=== PATIENT | male | born 1950 | race Caucasian/White ===

== ENCOUNTER → 2017-02-02 | Outpatient (CLI) | payer MEDICARE, OTHER ==
[~2017-02-02] MED LIST: CARB25TA75 PO; CHOL500021 OR; CLON05T PO; LEVO125T6 PO; LISI-709 PO; PERCOT PO; TRAZ100T2 PO; WARF7.5T PO
[2017-02-02 16:26] LABS: Basophils # (auto) 0 uL; Basophils % (auto) 0.4 % (0.0-2.0); Eosinophils # (auto) 0.2 uL; Eosinophils % (auto) 1.8 % (0.0-7.0); Hematocrit 46.9 % (41.0-53.0); Hemoglobin 15.1 g/dL (13.5-17.5); Lymphocytes # (auto) 1.2 uL; Lymphocytes % (auto) 11.1 % (10.0-50.0); Mean Corpuscular Hemoglobin 28.5 pg (28.0-32.0); Mean Corpuscular Hgb Conc. 32.2 g/dL (32.0-36.0); Mean Corpuscular Volume 88.5 fL (80.0-100.0); Mean Platelet Volume 8.5 fL (7.4-10.4); Monocytes # (auto) 0.7 uL; Monocytes % (auto) 6.5 % (0.0-12.0); Neutrophils # (auto) 8.3 uL; Neutrophils % (auto) 80.2 % (37.0-80.0); Platelet Count (auto) 256 10^3/uL (140-450); Red Cell Distribution Width 15.6 % (11.6-16.0); White Blood Cell 10.4 10^3/uL (4.4-10.8)
[2017-02-02 16:33] LABS: Urine Bilirubin Negative (Negative); Urine Blood Negative /uL (Negative); Urine Color Yellow (Yellow); Urine Glucose Normal (Normal); Urine Ketone TRACE (Negative); Urine Nitrite Negative (Negative); Urine Urobilinogen Normal (Negative); Urine pH 5.5 (5.0-8.0)
[2017-02-02 16:56] LABS: BUN/Creatinine Ratio 16.3; Bilirubin, Direct 0.1 mg/dL (0-0.2); Bilirubin, Total 0.4 mg/dL (0.2-1.0); Calcium 9.2 mg/dL (8.5-10.1); Potassium 4.6 mmol/L (3.5-5.1); Total Protein 7.4 g/dL (6.4-8.2)
== END | disposition home or self-care (01) ==
LOC: LAB 13:00
PROVIDERS: ATTEND Internal Medicine Cardiovascular Disease
DX: I10 Essential (primary) hypertension (principal); E78.00 Pure hypercholesterolemia, unspecified; K74.1 Hepatic sclerosis; E11.9 Type 2 diabetes mellitus without complications; R97.20 Elevated prostate specific antigen [PSA]; E03.9 Hypothyroidism, unspecified; D64.9 Anemia, unspecified; E55.9 Vitamin D deficiency, unspecified; N39.0 Urinary tract infection, site not specified
CPT/HCPCS: 36415; 80048; 80061; 80076; 81003; 82306; 83036; 84153; 84403; 84443; 85025

== ENCOUNTER → 2017-04-10 | Outpatient (CLI) | payer MEDICARE, OTHER ==
[~2017-04-10] VITALS: Ht 188 cm; Wt 85.7 kg
[~2017-04-10] MED LIST changes: +D5W 5% IV SCH; +DIPYRIDAMOLE (5MG/ML) 10 ML VIAL IV ONE; +DIPYRIDAMOLE IV SCH
== END | disposition home or self-care (01) ==
LOC: Rad HDHVI 11:29
PROVIDERS: ATTEND Internal Medicine Cardiovascular Disease
DX: I25.10 Atherosclerotic heart disease of native coronary artery without angina pectoris (principal); I10 Essential (primary) hypertension; I35.0 Nonrheumatic aortic (valve) stenosis; E78.00 Pure hypercholesterolemia, unspecified; Z82.49 Family history of ischemic heart disease and other diseases of the circulatory system
CPT/HCPCS: 78452; 93005; 96374; 96375; A9500; J1245

== ENCOUNTER → 2017-10-26 | Outpatient (CLI) | payer MEDICARE, OTHER ==
[~2017-10-26] VITALS: Ht 188 cm; Wt 88.5 kg
[~2017-10-26] MED LIST changes: +ALPR0.254 PO; -D5W 5% IV SCH; -DIPYRIDAMOLE (5MG/ML) 10 ML VIAL IV ONE; -DIPYRIDAMOLE IV SCH; +HYDR-3546 OR; +ZOLP12.52 PO
[2017-10-26 11:00] VITALS: BP 124/76
[2017-10-26 12:05] VITALS: BP 142/81
[2017-10-26 16:33] LABS: Basophils # (auto) 0.1 uL; Basophils % (auto) 0.9 % (0.0-2.0); Eosinophils # (auto) 0.3 uL; Eosinophils % (auto) 3.7 % (0.0-7.0); Hematocrit 43.3 % (41.0-53.0); Hemoglobin 14.3 g/dL (13.5-17.5); Mean Corpuscular Hemoglobin 30.3 pg (28.0-32.0); Mean Corpuscular Hgb Conc. 33.1 g/dL (32.0-36.0); Mean Corpuscular Volume 91.4 fL (80.0-100.0); Monocytes # (auto) 0.5 uL; Monocytes % (auto) 7.1 % (0.0-12.0); Neutrophils # (auto) 5.4 uL; Neutrophils % (auto) 74.3 % (37.0-80.0); Nucleated Red Blood Cells % 0.4 %; Platelet Count (auto) 224 10^3/uL (140-450); Red Cell Distribution Width 13.6 % (11.8-14.3); White Blood Cell 7.3 10^3/uL (4.4-10.8)
[2017-10-26 16:57] LABS: BUN/Creatinine Ratio 19.1; Calcium 8.6 mg/dL (8.5-10.1); INR 1.01 (0.9-1.15); Partial Thromboplastin Time 29.3 sec (22.64-33.71); Potassium 4.4 mmol/L (3.5-5.1)
[2017-10-26 16:59] LABS: Urine Bilirubin Negative (Negative); Urine Blood TRACE /uL (Negative); Urine Color Yellow (Yellow); Urine Glucose Normal (Normal); Urine Ketone TRACE (Negative); Urine Mucus FEW (None Seen); Urine Nitrite POSITIVE (Negative); Urine RBC 4 /hpf (0 - 3); Urine Urobilinogen Normal (Negative)
== END | disposition home or self-care (01) ==
LOC: Rad HDHVI 10:47
PROVIDERS: ATTEND Internal Medicine Cardiovascular Disease
DX: Z01.818 Encounter for other preprocedural examination (principal); I10 Essential (primary) hypertension; D64.9 Anemia, unspecified; R79.1 Abnormal coagulation profile; E78.00 Pure hypercholesterolemia, unspecified; Z95.2 Presence of prosthetic heart valve; Z95.0 Presence of cardiac pacemaker; Z79.899 Other long term (current) drug therapy
CPT/HCPCS: 36415; 71020; 80048; 81001; 85025; 85610; 85730; 87086; 93005; G0463

== ENCOUNTER 2017-10-29 08:05 | Day surgery (SDC) | payer MEDICARE, OTHER ==
[~2017-10-29] VITALS: Ht 188 cm; Wt 88.0 kg
[~2017-10-29 08:05] MED LIST changes: -CLON05T PO; -LEVO125T6 PO; +LEVO125T7 PO; -LISI-709 PO; -PERCOT PO; -TRAZ100T2 PO; -WARF7.5T PO
[2017-10-29] MEDS ORDERED: MORPHINE SULF INJ 2 MG/ML SYRINGE 1ML ONE (09:31)
[2017-10-29] MEDS ORDERED: ANGIOMAX 250 MG VIAL IV ONE (10:44)
[2017-10-29] MEDS ORDERED: fentaNYL CITRATE 100 MCG/2 ML VL ONE (10:44)
[2017-10-29] MEDS ORDERED: MIDAZOLAM HCL 1MG/1ML-2 ML VIAL ONE (10:44)
[2017-10-29] MEDS ORDERED: SODIUM CHL 0.9% 0 ML ONE (10:45)
[2017-10-29] MEDS ORDERED: GENTAMICIN IV SCH (11:45)
[2017-10-29] MEDS ORDERED: cefTRIAXone 1GM/10ml IVPUSH 10 ML IV ONE ×2 (11:45→12:14)
[2017-10-29] MEDS ORDERED: GENTAMICIN SULFATE 300 MG in D5W 5% 100 ML IV ONE (11:45)
== END 2017-10-29 14:05 | disposition home or self-care (01) ==
LOC: CATH 08:05
PROVIDERS: ATTEND Internal Medicine Cardiovascular Disease
DX: I35.0 Nonrheumatic aortic (valve) stenosis (principal); F41.9 Anxiety disorder, unspecified; Z87.891 Personal history of nicotine dependence; G20 Parkinson's disease; E03.9 Hypothyroidism, unspecified; I25.10 Atherosclerotic heart disease of native coronary artery without angina pectoris; Z95.5 Presence of coronary angioplasty implant and graft; M19.90 Unspecified osteoarthritis, unspecified site; N39.0 Urinary tract infection, site not specified
CPT/HCPCS: 93458; C1760; C1769; C1887; C1894; J1580; J2250; J2270; J3010; J7030; 99152; J7060

== ENCOUNTER → 2018-02-10 | Outpatient (CLI) | payer MEDICARE, OTHER ==
[2018-02-10 16:00] LABS: Basophils # (auto) 0 uL; Basophils % (auto) 0.6 % (0.0-2.0); Eosinophils # (auto) 0.1 uL; Hematocrit 49.3 % (41.0-53.0); Hemoglobin 16.2 g/dL (13.5-17.5); Lymphocytes # (auto) 0.9 uL; Lymphocytes % (auto) 11.3 % (10.0-50.0); Mean Corpuscular Hemoglobin 29.7 pg (28.0-32.0); Mean Corpuscular Hgb Conc. 32.9 g/dL (32.0-36.0); Mean Corpuscular Volume 90.1 fL (80.0-100.0); Monocytes # (auto) 0.7 uL; Monocytes % (auto) 8.7 % (0.0-12.0); Neutrophils % (auto) 78.4 % (37.0-80.0); Nucleated Red Blood Cells % 0.3 %; Platelet Count (auto) 250 10^3/uL (140-450); Red Blood Cells 5.48 10^6/uL (4.5-5.90); Red Cell Distribution Width 14.4 % (11.8-14.3); White Blood Cell 7.7 10^3/uL (4.4-10.8)
[2018-02-10 16:09] LABS: BUN/Creatinine Ratio 14.7; Bilirubin, Direct 0.1 mg/dL (0-0.2); Bilirubin, Total 0.6 mg/dL (0.2-1.0); Potassium 4.6 mmol/L (3.5-5.1); Total Protein 7.6 g/dL (6.4-8.2)
[2018-02-11 15:52] LABS: Urine Blood Negative /uL (Negative); Urine Specific Gravity 1.015 (1.001-1.035)
== END | disposition home or self-care (01) ==
LOC: LAB 12:44
PROVIDERS: ATTEND Internal Medicine Cardiovascular Disease
DX: E78.5 Hyperlipidemia, unspecified (principal); D64.9 Anemia, unspecified; I10 Essential (primary) hypertension; E03.9 Hypothyroidism, unspecified; E55.9 Vitamin D deficiency, unspecified; E11.9 Type 2 diabetes mellitus without complications; R53.81 Other malaise; R97.20 Elevated prostate specific antigen [PSA]; N39.0 Urinary tract infection, site not specified; K74.1 Hepatic sclerosis
CPT/HCPCS: 36415; 80048; 80061; 80076; 81003; 82306; 83036; 84153; 84403; 84443; 85025; 87086; 87088; 87186

== ENCOUNTER 2019-02-25 18:55 | Emergency (ER) | payer MEDICARE, OTHER ==
[~2019-02-25] VITALS: Ht 188 cm; Wt 88.5 kg
[2019-02-25 21:01] LABS: Basophils # (auto) 0 uL; Basophils % (auto) 0.3 % (0.0-2.0); Eosinophils # (auto) 0.3 uL; Eosinophils % (auto) 2.6 % (0.0-7.0); Hematocrit 51.4 % (41.0-53.0); Lymphocytes # (auto) 1.3 uL; Lymphocytes % (auto) 13.3 % (10.0-50.0); Mean Corpuscular Hemoglobin 31.1 pg (28.0-32.0); Mean Corpuscular Hgb Conc. 33.1 g/dL (32.0-36.0); Mean Corpuscular Volume 94.2 fL (80.0-100.0); Monocytes # (auto) 0.7 uL; Monocytes % (auto) 7.6 % (0.0-12.0); Neutrophils # (auto) 7.4 uL; Neutrophils % (auto) 76.2 % (37.0-80.0); Platelet Count (auto) 209 10^3/uL (140-450); Red Blood Cells 5.46 10^6/uL (4.5-5.90); Red Cell Distribution Width 15.4 % (11.8-14.3); White Blood Cell 9.7 10^3/uL (4.4-10.8)
[2019-02-25 21:27] LABS: Albumin 4.1 g/dL (3.4-5.0); Anion Gap 8 (5-15); BUN/Creatinine Ratio 13.6; Blood Urea Nitrogen 17 mg/dL (7-18); Calcium 9.4 mg/dL (8.5-10.1); Carbon Dioxide 30 mmol/L (21-32); Chloride 100 mmol/L (98-107); GFR African American 73 mL/min; GFR Non-African American 61 mL/min; Glucose 88 mg/dL (74-106); Magnesium 2.3 mg/dL (1.6-2.6); Potassium 3.7 mmol/L (3.5-5.1); Sodium 138 mmol/L (136-145)
[2019-02-25 21:32] LABS: Alanine Aminotransferase 7 U/L (16-61); Alkaline Phosphatase 68 U/L (45-117); Aspartate Aminotransferase 18 U/L (15-37); Bilirubin, Total 0.6 mg/dL (0.2-1.0); Total Protein 7.7 g/dL (6.4-8.2)
[2019-02-26] MEDS ORDERED: HYDROcodone-ACET 10/325MG TAB PO ONE (05:30)
[2019-02-26] MEDS ORDERED: TETANUS-DIPTH-ACEL PERTUSSIS 0.5ML SYRG IM ONE (07:45)
[2019-02-26] MEDS ORDERED: PROMETHAZINE HCL 25 MG/ML 1ML IV ONE (07:45)
[2019-02-26] MEDS ORDERED: KETOROLAC TROMETH 30 MG/ML 1ML VIAL IV ONE (07:45)
[2019-02-26 13:34] VITALS: BP 168/94
== END 2019-02-26 13:36 | disposition home or self-care (01) ==
LOC: ER 19:05
DX: S70.01XA Contusion of right hip, initial encounter (principal); S41.102A Unspecified open wound of left upper arm, initial encounter; G20 Parkinson's disease; Z95.1 Presence of aortocoronary bypass graft; W19.XXXA Unspecified fall, initial encounter; Y93.89 Activity, other specified; Y99.8 Other external cause status; Y92.89 Other specified places as the place of occurrence of the external cause
CPT/HCPCS: 36415; 70450; 73080; 73700; 80053; 83735; 84484; 85025; 90471; 90715; 93005; 96374; 96375; 99284; J1885; J2550

== ENCOUNTER → 2019-03-09 | Outpatient (CLI) | payer MEDICARE, OTHER | END | disposition home or self-care (01) | LOC: Rad HDHVI 14:54 | PROVIDERS: ATTEND Internal Medicine Cardiovascular Disease | DX: I73.9 Peripheral vascular disease, unspecified (principal); I42.0 Dilated cardiomyopathy | CPT/HCPCS: 93306; 93926 ==

== ENCOUNTER 2019-05-27 22:02 | Inpatient (IN) | payer MEDICARE, OTHER ==
[~2019-05-27] VITALS: Ht 182.9 cm; Wt 79.2 kg
[2019-05-27 23:39] LABS: Basophils # (auto) 0.1 uL; Basophils % (auto) 0.5 % (0.0-2.0); Eosinophils # (auto) 0.1 uL; Eosinophils % (auto) 0.7 % (0.0-7.0); Hematocrit 43.9 % (41.0-53.0); Hemoglobin 14.6 g/dL (13.5-17.5); Lymphocytes # (auto) 0.9 uL; Lymphocytes % (auto) 8.9 % (10.0-50.0); Mean Corpuscular Hemoglobin 30.8 pg (28.0-32.0); Mean Corpuscular Hgb Conc. 33.4 g/dL (32.0-36.0); Mean Corpuscular Volume 92.2 fL (80.0-100.0); Neutrophils # (auto) 8.3 uL; Neutrophils % (auto) 79.9 % (37.0-80.0); Platelet Count (auto) 211 10^3/uL (140-450); Red Blood Cells 4.76 10^6/uL (4.5-5.90); Red Cell Distribution Width 14.7 % (11.8-14.3); White Blood Cell 10.4 10^3/uL (4.4-10.8)
[2019-05-27 23:57] LABS: Urine Bacteria MANY /hpf (None Seen); Urine Blood 1+ /uL (Negative); Urine Hyaline Cast MANY /lpf (0 - 2); Urine Mucus FEW (None Seen); Urine Specific Gravity 1.018 (1.001-1.035); Urine WBC 703 /hpf (0 - 3); Urine WBC Clumps PRESENT /hpf (None Seen)
[2019-05-28] MEDS ORDERED: LEVOFLOXACIN 500MG 100 ML IV ONE (00:45)
[2019-05-28] MEDS ORDERED: LEVOTHYROXINE SODIUM 25 MCG TAB PO ONE (00:45)
[2019-05-28] MEDS ORDERED: TEMAZEPAM 15 MG CAP PO PRN (00:45)
[2019-05-28] MEDS ORDERED: ONDANSETRON HCL 4 MG/2 ML VIAL IV PRN (00:45)
[2019-05-28] MEDS ORDERED: ACETAMINOPHEN 325 MG TAB PO PRN (00:45)
[2019-05-28] MEDS ORDERED: IBUPROFEN 600 MG TAB PO ONE (01:00)
[2019-05-28] MEDS: SODIUM CHLORIDE 0.9% 1,000 ML IV SCH ×2 (01:10→20:13)
[2019-05-28] MEDS ORDERED: CARBIDOPA W LEVODOPA 25/100mg TABLET PO SCH ×4 (02:00→19:00)
--- NOTE | 2019-05-28 02:00 | NUR ---
MS admit from ER [facility] has been admitted to tele/MS. Patient's is present at bedside. Patient oriented to Misha Beasley, primary RN, unit, room, bed, and unit policies regarding patient care and visiting hours. Patient weighed by bedscale and encouraged to call if they need something. All questions and concerns addressed, patient verbalized understanding. Bed is locked and positioned to lowest level. Call light is placed within reach. Will continue to monitor the patient's status.
[2019-05-28 02:17] VITALS: BP 118/78
[2019-05-28] MEDS ORDERED: CARBIDOPA W LEVODOPA 25/100mg TABLET PO ONE (02:30)
[2019-05-28 04:46] VITALS: BP 127/72
[2019-05-28 07:30] VITALS: BP 114/69
--- NOTE | 2019-05-28 09:15 | NUR ---
Dosage of Sinemet clarified with pt, and relayed to pharmacy, so that it can be administered as ordered.
[2019-05-28] MEDS: FAMOTIDINE 20 MG TAB PO SCH ×2 (11:00→21:56)
--- NOTE | 2019-05-28 12:04 | NUR ---
WOUND CARE NOTE: Wound care in to see patient per wound care request regarding sacral skin integrity issue that are noted present on admission. Bedside nurse took photograph of patient's wound upon admission for reference. Patient is 68 years old male with admitting diagnosis of Metabolic Encephalopathy. Patient is resting in bed in Rm 247A. He's awake, angel to follow simple direction. He's able to assist in turning and repositioning. His Shreyas score is 16. Skin assessment done with the assistance of patient's nurse, CINDY Cali. Noted patient's L (1x1cm) and Rt (3x0.5cm) sacrum has Unstageable pressure injury. Wounds are covered with black eschar, jessica wound is dark red non-blanchable, no drainage/odor noted. Patient's sacral pressure injury looks old and resolving. Patient has Parkinson's and has difficulty communicating, however he states he has had it on previous hospitalization at different facility and showing/pointing to his sternal scar. Jessica care given, applied Z Guard cream to Rt and Lt. sacrum and covered with Opti foam sacral dressing. Repositioned patient for comfort on his back, redistributed pressure points with pillows and elevated heels on pillows. Patient tolerated well. Bed in low position, call ulloa on hand, bed alarm on. RECOMMENDATION: BID/PRN dressing change to sacral wounds per MD order, Dietary consult, frequent turning and repositioning schedule as condition permits, redistribute pressure points with pillows, elevate heels on pillows, continue monitoring by wound care while patient is hospitalized. Addendum: 05/28/19 at 1612 by Khloe Leslie RN Amended: Links added.
[2019-05-28 12:30] VITALS: BP 118/64
[2019-05-28] MEDS ORDERED: LORazepam 0.5 MG TAB PO PRN (16:45)
[2019-05-28] MEDS ORDERED: ERTAPENEM SOD INJ 1 GM in SODIUM CHL 0.9% 50 ML IV ONE (17:00)
[2019-05-28 17:12] VITALS: BP 139/79
--- NOTE | 2019-05-28 18:00 | NUR ---
Pt showing no change from initial assessment. Pt does not appear to be confused or disoriented. Pt's speech is difficulty to understand at times due to advanced Parkinson's. Pt able to take all PO medications without difficulty when placed in apple sauce. brought in home anti-Parkinson's medications for verification by Dr. Herrera. Total care maintained, with turning Q two hours. Pt very pleasant and cooperative. Pt moved to room 234 due to ESBL in urine.
[2019-05-28] MEDS ORDERED: ERTAPENEM SOD INJ 1 GM in SODIUM CHL 0.9% 50 ML IV SCH (18:54)
[2019-05-28 19:21] LABS: Calcium 8.7 mg/dL (8.5-10.1); Potassium 3.6 mmol/L (3.5-5.1)
--- NOTE | 2019-05-28 19:25 | NUR ---
Opening Shift Note Assumed care of patient, awake and alert. No S/S of distress/SOB or pain. is present at bedside. Instructed on POC and to call for assist PRN, will continue to monitor for changes Q1hr and PRN.
[2019-05-28] MEDS: ERTAPENEM SOD INJ 1 GM in SODIUM CHL 0.9% 50 ML IV SCH (20:14)
[2019-05-28] MEDS: CARBIDOPA W LEVODOPA 25/100mg TABLET PO SCH ×2 (20:25→23:05)
[2019-05-28] MEDS: ALPRAZolam 0.5 MG TAB PO PRN (20:35)
[2019-05-28] MEDS ORDERED: LEVOFLOXACIN 500MG 100 ML IV SCH (21:00)
[2019-05-28] MEDS: ATORVASTATIN 20 MG TAB PO SCH (21:56)
[2019-05-28] MEDS: GABAPENTIN 300 MG CAP PO SCH (21:56)
[2019-05-28 22:00] VITALS: BP 105/63
[2019-05-29] MEDS: CARBIDOPA PO SCH ×2 (00:16→23:58)
[2019-05-29] MEDS: LEVODOPA PO SCH ×2 (00:16→23:58)
[2019-05-29] MEDS: ZOLPIDEM TARTRATE 5 MG TAB PO PRN ×2 (00:18→21:37)
[2019-05-29 01:03] LABS: Alcohol, Urine < 3.0 mg/dL (0-5); Amphetamine Screen, Urine NEGATIVE (NEGATIVE); Barbiturate Scree,Urine NEGATIVE (NEGATIVE); Benzodiazephine Screen, Urine POSITIVE (NEGATIVE); Cannabinoid Screen, Urine NEGATIVE (NEGATIVE); Cocaine Screen, Urine NEGATIVE (NEGATIVE); Opiate Scree,Urine NEGATIVE (NEGATIVE); Phencyclidine Screen, Urine NEGATIVE (NEGATIVE)
[2019-05-29] MEDS: CARBIDOPA W LEVODOPA 25/100mg TABLET PO SCH ×8 (03:20→23:58)
[2019-05-29 05:11] VITALS: BP 94/57
[2019-05-29] MEDS: LEVOTHYROXINE SODIUM 50 MCG TAB PO SCH (05:27)
[2019-05-29] MEDS: GABAPENTIN 300 MG CAP PO SCH ×3 (05:27→21:37)
[2019-05-29 06:32] LABS: Basophils # (auto) 0.1 uL; Basophils % (auto) 0.7 % (0.0-2.0); Eosinophils # (auto) 0 uL; Eosinophils % (auto) 0.3 % (0.0-7.0); Hematocrit 43.4 % (41.0-53.0); Hemoglobin 14.5 g/dL (13.5-17.5); Lymphocytes # (auto) 0.9 uL; Lymphocytes % (auto) 9.7 % (10.0-50.0); Mean Corpuscular Hgb Conc. 33.4 g/dL (32.0-36.0); Mean Corpuscular Volume 92.9 fL (80.0-100.0); Monocytes # (auto) 1.1 uL; Monocytes % (auto) 11.9 % (0.0-12.0); Neutrophils # (auto) 7.3 uL; Neutrophils % (auto) 77.4 % (37.0-80.0); Platelet Count (auto) 175 10^3/uL (140-450); Red Blood Cells 4.67 10^6/uL (4.5-5.90); Red Cell Distribution Width 14.5 % (11.8-14.3); White Blood Cell 9.4 10^3/uL (4.4-10.8)
--- NOTE | 2019-05-29 07:33 | NUR ---
Opening Shift Note Assumed care of patient, awake and alert. No S/S of distress/SOB. Pt denies any pain at this time. Bed in lowest and locked position with side rails up x2 and call light within reach. Instructed on POC and to call for assist PRN, will continue to monitor for changes Q1hr and PRN.
[2019-05-29] MEDS: SODIUM CHLORIDE 0.9% 1,000 ML IV SCH ×2 (07:47→17:40)
[2019-05-29 08:07] LABS: Anion Gap 10 (5-15); Carbon Dioxide 28 mmol/L (21-32); Chloride 102 mmol/L (98-107); Potassium 3.2 mmol/L (3.5-5.1); Sodium 140 mmol/L (136-145)
[2019-05-29 08:08] LABS: BUN/Creatinine Ratio 11.3; Blood Urea Nitrogen 12 mg/dL (7-18); GFR African American 89 mL/min; GFR Non-African American 73 mL/min; Glucose 93 mg/dL (74-106)
[2019-05-29] MEDS: FAMOTIDINE 20 MG TAB PO SCH ×2 (08:27→21:37)
[2019-05-29 09:00] VITALS: BP 110/58
[2019-05-29 09:05] LABS: Alanine Aminotransferase < 6 U/L (16-61); Albumin 2.7 g/dL (3.4-5.0); Aspartate Aminotransferase 10 U/L (15-37); Bilirubin, Direct 0.1 mg/dL (0-0.2)
[2019-05-29 09:06] LABS: Alkaline Phosphatase 59 U/L (45-117); Bilirubin, Total 0.5 mg/dL (0.2-1.0); Total Protein 6.1 g/dL (6.4-8.2)
[2019-05-29] MEDS: ALPRAZolam 0.5 MG TAB PO PRN (10:53)
[2019-05-29] MEDS: POTASSIUM CHL 20 Meq TABLET PO SCH (10:54)
--- NOTE | 2019-05-29 12:28 | NUR ---
Nutrition consult/assessment Notes please see attached link for complete assessment Est. Needs BW [id number] kcal (25-30 kcal/kgBW), 79-102 gms pro (1.0-1.3 gms/kgBW d/t wounds). Will continue to monitor pertinent labs and reassess nutrient need prn Addendum: 05/29/19 at [address] Amended: Links added.
[2019-05-29 13:00] VITALS: BP 107/65
--- NOTE | 2019-05-29 16:17 | NUR ---
PAGED FINANCIAL MANAGER HOSPITALIST IN REGARDS TO PT REQUEST FOR HOME MEDICATION ATIVAN.
[2019-05-29 17:00] VITALS: BP 106/69
[2019-05-29] MEDS: ERTAPENEM SOD INJ 1 GM in SODIUM CHL 0.9% 50 ML IV SCH (17:40)
--- NOTE | 2019-05-29 18:26 | NUR ---
PAGED BLADE BALANCER HOSPITALIST FOR PT HOME MEDICATION, MARIBETH. AWAITING CALL BACK.
--- NOTE | 2019-05-29 18:27 | NUR ---
CALL BACK RECEIVED FROM PRICE LISTER HOSPITALISTKEVIN. NEW ORDERS RECEIVED, READ BACK AND VERIFIED.
[2019-05-29] MEDS: LORazepam 2MG/ML-1ML VIAL IV PRN (19:00)
--- NOTE | 2019-05-29 19:30 | NUR ---
Opening Shift Note Assumed care of patient, awake and alert. No S/S of distress/SOB or pain. Insructed on POC and to callfor assist PRN, will continue to monitor for changes Q1hr and PRN. Fall and safety precautions in place. Call light within reach.
[2019-05-29] MEDS: ATORVASTATIN 20 MG TAB PO SCH (21:37)
[2019-05-29 22:12] VITALS: BP 107/49
[2019-05-30] MEDS: CARBIDOPA W LEVODOPA 25/100mg TABLET PO SCH ×8 (01:46→22:21)
[2019-05-30] MEDS: OXYCODONE HCL 5MG TAB PO PRN ×2 (01:53→09:58)
[2019-05-30] MEDS: SODIUM CHLORIDE 0.9% 1,000 ML IV SCH ×2 (04:43→19:40)
[2019-05-30] MEDS: LEVOTHYROXINE SODIUM 50 MCG TAB PO SCH (04:43)
[2019-05-30] MEDS: GABAPENTIN 300 MG CAP PO SCH ×3 (04:43→19:41)
[2019-05-30] MEDS: LORazepam 2MG/ML-1ML VIAL IV PRN ×2 (04:44→20:56)
[2019-05-30 05:18] VITALS: BP 115/63
[2019-05-30 08:41] VITALS: BP 110/65
[2019-05-30] MEDS: POTASSIUM CHL 20 Meq TABLET PO SCH (09:58)
[2019-05-30] MEDS: FAMOTIDINE 20 MG TAB PO SCH ×2 (09:58→19:41)
--- NOTE | 2019-05-30 10:39 | NUR ---
Pt is an alert but weakened and confused male due to Parkinsons that has a difficult time communicating. Per spouse, Denise, pt resides with her and she is his primary caregiver. Denise states pt has a wheelchair and has been on service with [facility] prior to this hospitalization. Denise states she wants to continue with their service for the IV ABX therapy. Addendum: 05/31/19 at 0942 by FLAVIO ARRIOLA Amended: Links added.
[2019-05-30] MEDS ORDERED: LACTULOSE 20Gm/30ML SOLN PO ONE (12:30)
[2019-05-30 13:14] VITALS: BP 117/68
--- NOTE | 2019-05-30 14:55 | NUR ---
HOME ABX: FAXED IV PACKET TO [facility] PH [phone]) [facility] ([phone].
[2019-05-30 16:48] VITALS: BP 97/59
--- NOTE | 2019-05-30 17:01 | NUR ---
Midline Placement: Patient educated on need for midline placement. All risks and benefits explained and all questions and concerns addresses prior to procedure. 18g/10cm midline inserted via RIGHT BASILIC vein using Ultrasound. Sterile technique utilized. Blood return obtained from SINGLE lumen and flushed easily with NS using proper technique. Midline secured with saline lock; biodisc and occlusive dressing applied. Primary RN notified. Midline lot #[id number].
[2019-05-30] MEDS: Ensure Enlive Strawberry 8oz Bottle PO SCH (19:18)
[2019-05-30] MEDS: ERTAPENEM SOD INJ 1 GM in SODIUM CHL 0.9% 50 ML IV SCH (19:19)
--- NOTE | 2019-05-30 19:19 | NUR ---
End of Shift Endorsed care to NOC nurse. Patient sitting up in bed, shows no signs of distress at this time. Bed in lowest locked position, side rails up x2 and call light within reach.
--- NOTE | 2019-05-30 19:30 | NUR ---
Opening Shift Note Assumed care of patient, awake and alert. No S/S of distress/SOB or pain. Insructed on POC and to callfor assist PRN, will continue to monitor for changes Q1hr and PRN. at bedside. Fall and safety precautions in place. Call light within reach.
[2019-05-30] MEDS: ATORVASTATIN 20 MG TAB PO SCH (19:40)
[2019-05-30 22:20] VITALS: BP 111/69
[2019-05-30] MEDS: ZOLPIDEM TARTRATE 5 MG TAB PO PRN (22:22)
--- NOTE | 2019-05-30 22:30 | NUR ---
IV removal IV DC'd with clean sterile technique, catheter fully intact. Pressure dressing applied to site. Patient tolerated well. NOTE: LAC 18g removed due to leaking
[2019-05-30] MEDS: CARBIDOPA PO SCH (23:56)
[2019-05-30] MEDS: LEVODOPA PO SCH (23:56)
[2019-05-31] MEDS: CARBIDOPA W LEVODOPA 25/100mg TABLET PO SCH ×8 (01:26→23:12)
[2019-05-31] MEDS: OXYCODONE HCL 5MG TAB PO PRN (02:13)
--- NOTE | 2019-05-31 02:19 | NUR ---
CONFUSION Entered room because patient was yelling. Found patient with legs dangling off bed and patient stating he wanted to go home. Educated patient that he was in hospital and possibly could go home later today. Patient continue to verbalize, but speech is incomprehensible. Repositioned patient back in bed. Patient yelled "Adderall!" Educated patient that Adderall medication is not ordered and that he was given every other PRN medication last night. Patient continued to mumble. Asked patient to simply nod head "yes" or shake head "no" when asked questions due to incomprehensible speech. Asked patient if he was in pain, patient stated "yes." Patient was medicated with PRN pain medication (see emar). Bed alarm in place, side rails x2 up, bed locked and in lowest position. Will continue to monitor.
--- NOTE | 2019-05-31 04:00 | NUR ---
OXYGEN Patient's oxygen saturation was at 88% on room air. Patient resting with eyes closed, even and nonlabored breathing and snoring sounds. Nasal cannula on 2L O2 placed on patient. Saturation now 92%. Will inform day shift RN. Will continue to monitor
[2019-05-31 04:39] VITALS: BP 125/75
[2019-05-31] MEDS: GABAPENTIN 300 MG CAP PO SCH ×4 (06:10→19:53)
[2019-05-31] MEDS: LEVOTHYROXINE SODIUM 50 MCG TAB PO SCH (06:10)
[2019-05-31] MEDS: LORazepam 2MG/ML-1ML VIAL IV PRN ×2 (06:22→18:14)
--- NOTE | 2019-05-31 07:15 | NUR ---
Open Shift Note Received report on patient, asleep in bed. Patient awoken to voice but confused and stated "why are you in my room". Reoriented patient to place, time and situation. Discussed POC with patient. Bed in lowest locked position, side rails up x2 and call light within reach. Will continue to monitor.
[2019-05-31] MEDS: Ensure Enlive Strawberry 8oz Bottle PO SCH ×2 (08:39→18:00)
[2019-05-31] MEDS: SODIUM CHLORIDE 0.9% 1,000 ML IV SCH ×2 (08:40→23:13)
[2019-05-31 09:00] VITALS: BP 117/78
--- NOTE | 2019-05-31 09:28 | NUR ---
Re: Choking Patient heard gasping for air from nurses station. When entered room, patient's face was red and he was coughing. Suctioned mucous out of patient's mouth. Patient stated relief. Ensured patient is sitting straight up for aspiration precautions. Lung sounds clear at this time. Will continue to monitor.
--- NOTE | 2019-05-31 09:31 | NUR ---
Paged Dr Herrera Paged Dr Herrera to inform her of patient's aspiration and still having difficulty with coughing. Will also inform her patient is becoming more confused and stating, "they're coming to get me". Awaiting call back.
[2019-05-31] MEDS: POTASSIUM CHL 20 Meq TABLET PO SCH (10:00)
[2019-05-31] MEDS: FAMOTIDINE 20 MG TAB PO SCH ×2 (10:00→19:54)
[2019-05-31] MEDS: LACTULOSE 20Gm/30ML SOLN PO SCH (10:00)
[2019-05-31] MEDS ORDERED: HALOPERIDOL LACTATE 5 MG/ML INJ VIAL IM PRN (10:15)
[2019-05-31] MEDS ORDERED: IPRATROPIUM BROM 0.5 MG/2.5ML INH SOL NEB PRN (11:00)
[2019-05-31] MEDS ORDERED: ALBUTEROL SULF 2.5 MG/0.5ML(0.5%) NEB SOLN NEB PRN (11:00)
[2019-05-31] MEDS: ALBUTEROL SULF 2.5 MG/0.5ML(0.5%) NEB SOLN NEB SCH ×2 (11:58→19:29)
[2019-05-31] MEDS: IPRATROPIUM BROM 0.5 MG/2.5ML INH SOL NEB SCH ×2 (11:58→19:29)
--- NOTE | 2019-05-31 12:24 | NUR ---
Paged Dr Herrera Paged Dr Herrera to inform her of chest x-ray results and to ask for IV medication orders instead of PO. Awaiting call back.
--- NOTE | 2019-05-31 12:44 | NUR ---
Dr Herrera Stated Only Meds by Mouth Dr Herrera at bedside watched patient swallow pills with applesauce, stated he is NPO until swallow eval completed, but he is allowed to swallow pills with applesauce at this time. Verbalized understanding.
[2019-05-31 13:10] VITALS: BP 113/88
[2019-05-31 13:12] VITALS: BP 113/88
[2019-05-31 17:29] VITALS: BP 115/65
[2019-05-31] MEDS: ERTAPENEM SOD INJ 1 GM in SODIUM CHL 0.9% 50 ML IV SCH (18:53)
--- NOTE | 2019-05-31 18:55 | NUR ---
Closing Note Patient sitting up in bed, shows no signs of distress at this time. Bed in lowest locked position, patient sitting up at 90 degree angle, bed alarm on, and suction set up at bedside. Endorsed care to [facility] nurse.
--- NOTE | 2019-05-31 19:49 | NUR ---
PHARMACY Called pharmacy regarding patient own mediation not being in stock in patient cassette. Pharmacy stated stocked on pyxis, not in patient cassette.
[2019-05-31] MEDS: ATORVASTATIN 20 MG TAB PO SCH (19:53)
[2019-05-31 23:06] VITALS: BP 133/79
[2019-05-31] MEDS: ZOLPIDEM TARTRATE 5 MG TAB PO PRN (23:12)
[2019-05-31] MEDS: CARBIDOPA PO SCH (23:12)
[2019-05-31] MEDS: LEVODOPA PO SCH (23:12)
--- NOTE | 2019-06-01 | NUR ---
CONFUSION While I was in another patient room, secondary RN informed me that patient was yelling and she entered to see what patient needed. She found patient with legs dangling off bed and patient almost out of bed. She assisted patient back into bed and repositioned for comfort. Side rails x3 up, bed alarm on sensitive mode turned on, bed locked and in lowest position. I entered room to see patient and patient was found in high herring's position, yelling he wanted his medications. Informed patient that I would return with sleeping medications and scheduled medications. Patient verbalized understanding. Will continue to monitor
[2019-06-01] MEDS: IPRATROPIUM BROM 0.5 MG/2.5ML INH SOL NEB SCH ×4 (00:49→18:20)
[2019-06-01] MEDS: ALBUTEROL SULF 2.5 MG/0.5ML(0.5%) NEB SOLN NEB SCH ×4 (00:49→18:20)
[2019-06-01] MEDS: CARBIDOPA W LEVODOPA 25/100mg TABLET PO SCH ×9 (01:43→23:08)
--- NOTE | 2019-06-01 02:03 | NUR ---
0200 MEDICATION Attempted to administer scheduled 0200 medication to patient. Patient was sat up at 90 degrees in bed and lights in room turned on. Attempted to awaken patient with sternal rub, yelling his name, shaking shoulders, tapping arms, and applying pressure to digits. Patient would slowly open his eyes and close them again. Patient would reach out with his arms towards me. Attempted to give patient water through straw, but when straw was in his mouth, patient would not suck. Water was taken away. Attempted to instruct patient to open his eyes. Patient would open them briefly, then close them again. Instructed patient to open his mouth so medication and apple sauce could be administered. Patient would briefly open his mouth. Attempted for approximately 15 minutes with no success. When patient was asked again to open his mouth, patient opened his mouth and mediation with apple sauce was administered. Patient closed his mouth, closed his eyes, and held medication in mouth. Patient was shaken, sternal rubbed, and tapped and instructed to swallow. Patient would briefly open his eyes, close them again, and refuse to swallow. Attempted to get patient to swallow what was in his mouth for approximately 5 minutes with no success. Patient's mouth was suctioned of apple sauce and 3 pills. After ensuring mouth was empty, head of bed was lowered to approximately 30 degrees, legs of bed elevated. Bed in lowest and locked position, bed rails x3 up, and bed alarm turned on. Lights turned off as I walked out of room. Will continue to monitor
--- NOTE | 2019-06-01 04:46 | NUR ---
0500 MEDICATION Patient refusing to open eyes when asked to wake up for medication. Due to previous attempt of trying to get patient to swallow medications with no success, no attempt was made at this time. Patient resting quietly in bed with eyes closed, snoring sounds, even and nonlabored breathing. Fall and safety precautions remain in place. Call light within reach. Will continue to monitor
[2019-06-01 05:22] VITALS: BP 129/81
[2019-06-01] MEDS: GABAPENTIN 300 MG CAP PO SCH ×3 (05:30→21:53)
[2019-06-01] MEDS: LEVOTHYROXINE SODIUM 50 MCG TAB PO SCH (06:21)
[2019-06-01 06:35] LABS: Basophils # (auto) 0 uL; Basophils % (auto) 0.6 % (0.0-2.0); Eosinophils # (auto) 0.3 uL; Eosinophils % (auto) 6.6 % (0.0-7.0); Hematocrit 43.8 % (41.0-53.0); Hemoglobin 14.7 g/dL (13.5-17.5); Lymphocytes % (auto) 23.4 % (10.0-50.0); Mean Corpuscular Hemoglobin 30.8 pg (28.0-32.0); Mean Corpuscular Hgb Conc. 33.5 g/dL (32.0-36.0); Mean Corpuscular Volume 91.9 fL (80.0-100.0); Monocytes # (auto) 0.4 uL; Monocytes % (auto) 10.8 % (0.0-12.0); Neutrophils # (auto) 2.4 uL; Neutrophils % (auto) 58.6 % (37.0-80.0); Nucleated Red Blood Cells % 0.2 %; Platelet Count (auto) 186 10^3/uL (140-450); Red Blood Cells 4.77 10^6/uL (4.5-5.90); Red Cell Distribution Width 14.3 % (11.8-14.3); White Blood Cell 4.2 10^3/uL (4.4-10.8)
[2019-06-01 06:47] LABS: Chloride 102 mmol/L (98-107); Potassium 3.8 mmol/L (3.5-5.1); Sodium 138 mmol/L (136-145)
[2019-06-01 06:58] LABS: Alanine Aminotransferase < 6 U/L (16-61); Albumin 2.5 g/dL (3.4-5.0); Alkaline Phosphatase 53 U/L (45-117); Anion Gap 3 (5-15); Aspartate Aminotransferase 12 U/L (15-37); BUN/Creatinine Ratio 10.8; Bilirubin, Total 0.3 mg/dL (0.2-1.0); Blood Urea Nitrogen 9 mg/dL (7-18); Calcium 8.7 mg/dL (8.5-10.1); Carbon Dioxide 33 mmol/L (21-32); GFR African American 118 mL/min; GFR Non-African American 97 mL/min; Glucose 91 mg/dL (74-106)
[2019-06-01] MEDS: Ensure Enlive Strawberry 8oz Bottle PO SCH ×2 (08:00→18:00)
--- NOTE | 2019-06-01 08:00 | NUR ---
Opening Shift Note Assumed care of patient, asleep. No S/S of distress/SOB. Will continue to monitor for changes Q1hr and PRN.
[2019-06-01 09:00] VITALS: BP 159/79
--- NOTE | 2019-06-01 09:17 | NUR ---
Speech therapist at bedside for swallow eval.
--- NOTE | 2019-06-01 09:45 | NUR ---
SWALLOW EVALUATED. PATIENT HAS OWN TEETH UPPER AND LOWER. PATIENT FOLLOWED 1-2 STEP COMMANDS. PATIENT ABLE TO TOLERATE PUREE DIET TEXTURE WITH NO OVERT SIGNS OR SYMPTOMS OF ASPIRATION. PATIENT COUGHED ON THIN LIQUIDS. RECOMMEND NECTAR THICKENED LIQUIDS. PATIENT SHOULD BE UPRIGHT FOR PO INTAKE 90 DEGREES.
[2019-06-01] MEDS ORDERED: OXYCODONE HCL 5MG TAB PO PRN (10:00)
[2019-06-01] MEDS: FAMOTIDINE 20 MG TAB PO SCH ×2 (10:00→21:53)
--- NOTE | 2019-06-01 10:00 | NUR ---
Sister at bedside.
[2019-06-01] MEDS: POTASSIUM CHL 20 Meq TABLET PO SCH (10:41)
[2019-06-01] MEDS: LACTULOSE 20Gm/30ML SOLN PO SCH (10:41)
--- NOTE | 2019-06-01 11:00 | NUR ---
Informed Dr. Herrera that patient has not have a bowel movement for [address] Herrera states she will do rectal exam.
[2019-06-01] MEDS: LORazepam 2MG/ML-1ML VIAL IV PRN ×2 (11:18→20:16)
[2019-06-01] MEDS: SODIUM CHLORIDE 0.9% 1,000 ML IV SCH (11:27)
--- NOTE | 2019-06-01 12:52 | NUR ---
Nutrition Follow-up Notes Wt.: 79.3 kg as of yesterday. Pt's in isolation room, on oxygen via nasal cannula, asleep, no immediate family member at bedside when rounded this morning. Pt's NPO, no signs of distress noted earlier, noted s/p swallow eval by ST and to start today on Pureed diet with Ensure Enlive 1 carton TID. Noted pt's for active Cardiology, Nephrology, Wound consults. Est. Needs BW [id number] kcal (25-30 kcal/kgBW), 79-102 gms pro (1.0-1.3 gms/kgBW d/t wounds). Will continue to monitor pertinent labs and reassess nutrient need prn Labs: BUN 33 H, AST 12 L, ALT <6 L, Tpro 6.0 L, Alb 2.5 L Skin: Shreyas scale 15, mod risk, pt's L wrist, right sacrum pressure ulcer per co chairman. Pls refer to inside sales recruiter's notes 05/28/19 for further details re: tx plans GI: Pt's no bowel activity since 05/27/19 per co chairman. Noted pt's on Lactulose. PES: Altered nutrition related lab values r/t acute/chronic medical condition aeb elev. BUN,, low LFTs, mod hypoalbuminemia Will continue to monitor PO intake, skin status, pertinent labs and weight trend. F/u in 3 to 5 days. Rec.: 1.) Continue close supervision and feeding assistance pnr during meals. 2.) If Albumin level continues trending down, consider Prostat 1 pkt BID. 3.) Refer pt to RD for further nutrition education and weight monitoring upon discharge. 4.) Continue current plan of care.
[2019-06-01 13:00] VITALS: BP 107/74
[2019-06-01 17:00] VITALS: BP 120/70
--- NOTE | 2019-06-01 17:21 | NUR ---
at bedside, updated with the POC.
[2019-06-01] MEDS: ERTAPENEM SOD INJ 1 GM in SODIUM CHL 0.9% 50 ML IV SCH (18:27)
--- NOTE | 2019-06-01 19:30 | NUR ---
Closing note Patient resting in bed, no signs of distress noted.
[2019-06-01] MEDS: ATORVASTATIN 20 MG TAB PO SCH (21:52)
[2019-06-01] MEDS: ZOLPIDEM TARTRATE 5 MG TAB PO PRN (21:52)
[2019-06-01 22:26] VITALS: BP 114/72
--- NOTE | 2019-06-01 22:49 | NUR ---
CALLED EXTENDED PHARMACY FOR MEDICATION CLARIFICATION: PATIENT HAS BEEN TAKING SINEMET 25/100MG 3 TABS EVERY 3 HOURS AND A MIDNIGHT CARBIDOPA LEVODOPA FROM HOME DISPENSED BY PHARMACY. ASKED IF DOSAGE WAS TOO MUCH FOR THE PATIENT. PHARMACY STATED "Patient has been taking their medication like this for a few days now. Its ok to give it as they have been getting it. It is one of those tricky medications." TO NOTIFY DAY SHIFT NURSE TO CLARIFY WITH DR NEAL.
[2019-06-02] MEDS: CARBIDOPA PO SCH
[2019-06-02] MEDS: LEVODOPA PO SCH
[2019-06-02] MEDS: IPRATROPIUM BROM 0.5 MG/2.5ML INH SOL NEB SCH ×5 (00:15→23:53)
[2019-06-02] MEDS: ALBUTEROL SULF 2.5 MG/0.5ML(0.5%) NEB SOLN NEB SCH ×5 (00:15→23:54)
[2019-06-02] MEDS: SODIUM CHLORIDE 0.9% 1,000 ML IV SCH ×2 (01:10→14:15)
[2019-06-02] MEDS: CARBIDOPA W LEVODOPA 25/100mg TABLET PO SCH ×8 (02:20→23:19)
[2019-06-02 05:07] VITALS: BP 121/76
[2019-06-02] MEDS: LORazepam 2MG/ML-1ML VIAL IV PRN (05:38)
--- NOTE | 2019-06-02 05:40 | NUR ---
UNABLE TO GIVE MEDS, DIFFICULTY SWALLOWING: PATIENT ASPIRATED A LITTLE BIT WHILE ATTEMPTING TO GIVE PATIENT HIS MEDICATIONS THIS MORNING PATIENT HAD AN EPISODE OF DIFFICULTY BREATHING A SWALLOWING WHILE ATTEMPTING TO SWALLOW MEDICATIONS. PATIENT WAS IN HIGH FOWLERS POSITION, MEDS WERE PLACED IN APPLE SAUCE AND THICKENED FLUID WAS USED TO ASSIST WASHING MEDICATIONS DOWN. SUCTIONED THE PATIENT TO CLEAR PATIENTS MOUTH. SINEMET WAS GIVEN BEFORE ASPIRATION OCCURRED BUT CANNOT GIVE GABAPENTIN AT THIS TIME DUE TO MEDICATION BEING A CAPSULE AND CANNOT BE CRUSHED. ASSISTED CLEANING UP MOUTH WITH TOWEL AND PAGED RESPIRATORY AT THIS TIME. VITAL SIGNS TAKEN AND THE 97.3 TEMPERATURE, BLOOD PRESSURE 125/72, HEART RATE 63, OXYGEN SATURATION 92%.
[2019-06-02] MEDS: GABAPENTIN 300 MG CAP PO SCH ×3 (05:47→21:40)
[2019-06-02] MEDS: LEVOTHYROXINE SODIUM 50 MCG TAB PO SCH (06:35)
[2019-06-02] MEDS: Ensure Enlive Strawberry 8oz Bottle PO SCH ×2 (08:00→18:00)
[2019-06-02 09:00] VITALS: BP 111/67
--- NOTE | 2019-06-02 09:30 | NUR ---
PT at bedside, patient assisted to sit on a chair. Tolerated well. Will continue care.
[2019-06-02] MEDS: LACTULOSE 20Gm/30ML SOLN PO SCH ×2 (10:00→11:00)
--- NOTE | 2019-06-02 10:00 | NUR ---
Still no bowel movement since 05/27/19. Dr. Herrera aware, orders received.
[2019-06-02] MEDS ORDERED: MILK OF MAGNESIA 30ML SUSP PO ONE (10:30)
[2019-06-02] MEDS: FAMOTIDINE 20 MG TAB PO SCH ×2 (10:59→21:37)
[2019-06-02] MEDS: POTASSIUM CHL 20 Meq TABLET PO SCH (10:59)
--- NOTE | 2019-06-02 11:00 | NUR ---
Refused Lactulose PO, MOM administered.
[2019-06-02] MEDS: ALPRAZolam 0.5 MG TAB PO PRN ×2 (11:32→19:53)
[2019-06-02 12:32] VITALS: BP 118/78
--- NOTE | 2019-06-02 12:44 | NUR ---
Updated order for IV ABX faxed to for anticipated discharge on 06/04/19.
[2019-06-02 16:58] VITALS: BP 106/70
[2019-06-02] MEDS: ERTAPENEM SOD INJ 1 GM in SODIUM CHL 0.9% 50 ML IV SCH (17:52)
--- NOTE | 2019-06-02 19:11 | NUR ---
Opening Shift Note Assumed care of patient, awake and alert. No S/S of distress/SOB noted. Bed is in lowest locked position with bed rails upx2 and call light is within reach of the patient. Instructed on POC and to call for assist PRN. Addendum: 06/03/19 at 0329 by Yas Jacobs RN RN Bed alarm armed and to turn q two hours
[2019-06-02] MEDS: ATORVASTATIN 20 MG TAB PO SCH (21:38)
[2019-06-02] MEDS: ZOLPIDEM TARTRATE 5 MG TAB PO PRN (21:38)
--- NOTE | 2019-06-02 21:45 | NUR ---
Wound picture taken: Upon walking in the room patient left arm was bleeding from a small skin tear on his left forearm. Wound pictures taken and wound consult placed. Patient resting in bed with bed in lowest locked position with bed rails up x2.
[2019-06-02 22:01] VITALS: BP 106/68
[2019-06-03] MEDS: LEVODOPA PO SCH (00:18)
[2019-06-03] MEDS: CARBIDOPA PO SCH (00:18)
[2019-06-03] MEDS: CARBIDOPA W LEVODOPA 25/100mg TABLET PO SCH ×8 (02:46→22:53)
[2019-06-03] MEDS: SODIUM CHLORIDE 0.9% 1,000 ML IV SCH ×2 (02:47→18:38)
[2019-06-03] MEDS: ALPRAZolam 0.5 MG TAB PO PRN ×3 (04:02→20:34)
[2019-06-03 05:00] VITALS: BP 115/71
--- NOTE | 2019-06-03 05:00 | NUR ---
Provided bed bath and bed change: Provided patient with a bed bath and provided patient with clean sheets and a new gown. No bowel movement at this time but patient did pass gas. Placed new Optifoam and barrier cream to sacrum. Patient tolerated well. No s/s of distress SOB or pain noted.
[2019-06-03] MEDS: GABAPENTIN 300 MG CAP PO SCH ×3 (05:30→22:37)
[2019-06-03 05:52] VITALS: BP 115/71
[2019-06-03] MEDS: IPRATROPIUM BROM 0.5 MG/2.5ML INH SOL NEB SCH ×3 (06:02→19:53)
[2019-06-03] MEDS: ALBUTEROL SULF 2.5 MG/0.5ML(0.5%) NEB SOLN NEB SCH ×3 (06:02→19:53)
[2019-06-03] MEDS: LEVOTHYROXINE SODIUM 50 MCG TAB PO SCH (06:36)
[2019-06-03 08:00] VITALS: BP 103/64
[2019-06-03] MEDS: Ensure Enlive Strawberry 8oz Bottle PO SCH ×2 (08:00→18:00)
--- NOTE | 2019-06-03 08:00 | NUR ---
Opening Shift Note Assumed care of patient, awake and alert, with garbled speech. No S/S of distress/SOB or pain. Fall precaution initiated for generalized weakness. Instructed on POC and to call for assist PRN, will continue to monitor for changes Q1hr and PRN.
[2019-06-03] MEDS: MILK OF MAGNESIA 30ML SUSP PO SCH ×2 (11:24→22:37)
[2019-06-03] MEDS: POTASSIUM CHL 20 Meq TABLET PO SCH (11:24)
[2019-06-03] MEDS: FAMOTIDINE 20 MG TAB PO SCH ×2 (11:29→22:38)
[2019-06-03 12:00] VITALS: BP 102/64
--- NOTE | 2019-06-03 13:15 | NUR ---
WOUND CARE NOTE: Wound care team weekly reevaluation. Patient seen with CINDY Schmitz. Patient has been followed by wound care team due to pressure injury to sacrum. Photographs taken for reference. Sacrum is open pink and shallow. Wound appears to be healing well. Patient also noted to have a small (1x1cm) skin tear to left arm. RECOMMENDATIONS: Nursing to continue with previous wound/skin care orders; Nursing to cleanse left arm skin tear with wound cleanser, pat dry, apply THERAHONEY GEL to wound, cover with OPTIFOAM GENTLE dressing, change every other day; wound care team to continue to monitor. Addendum: 06/03/19 at 1825 by IRIS FLANNERY RN Amended: Links added.
--- NOTE | 2019-06-03 14:00 | NUR ---
D/C planning for 06/04/19 with home health services. Home IV antibiotics being set up. Will continue care.
[2019-06-03 16:00] VITALS: BP 122/69
[2019-06-03] MEDS: ERTAPENEM SOD INJ 1 GM in SODIUM CHL 0.9% 50 ML IV SCH (18:47)
--- NOTE | 2019-06-03 19:20 | NUR ---
Opening Shift Note Assumed care of patient, awake and alert resting in bed, pleasant with uncleared speech. No S/S of distress/SOB or pain. Instructed on POC and to call for assist PRN, will continue to monitor for changes Q1hr and PRN. Bed placed in lowest position, bed alarm turned on and call light within reach.
[2019-06-03 21:54] VITALS: BP 116/71
[2019-06-03] MEDS: ATORVASTATIN 20 MG TAB PO SCH (22:37)
[2019-06-04] MEDS: CARBIDOPA PO SCH (00:24)
[2019-06-04] MEDS: LEVODOPA PO SCH (00:24)
[2019-06-04] MEDS: ZOLPIDEM TARTRATE 5 MG TAB PO PRN (00:36)
[2019-06-04] MEDS: IPRATROPIUM BROM 0.5 MG/2.5ML INH SOL NEB SCH ×4 (01:22→19:04)
[2019-06-04] MEDS: ALBUTEROL SULF 2.5 MG/0.5ML(0.5%) NEB SOLN NEB SCH ×4 (01:22→19:04)
[2019-06-04] MEDS: CARBIDOPA W LEVODOPA 25/100mg TABLET PO SCH ×6 (02:00→18:11)
[2019-06-04 05:00] VITALS: BP 110/64
[2019-06-04] MEDS: GABAPENTIN 300 MG CAP PO SCH ×3 (06:00→14:43)
--- NOTE | 2019-06-04 06:00 | NUR ---
PATIENT IS ALERT AND AWAKE, NO DISTRESS NOTED AND PATIENT DENIES PAIN.
[2019-06-04] MEDS: LEVOTHYROXINE SODIUM 50 MCG TAB PO SCH (07:01)
[2019-06-04] MEDS: SODIUM CHLORIDE 0.9% 1,000 ML IV SCH (07:01)
[2019-06-04] MEDS: ALPRAZolam 0.5 MG TAB PO PRN (07:05)
--- NOTE | 2019-06-04 08:00 | NUR ---
Opening Shift Note Assumed care of patient, awake and alert. No S/S of distress/SOB or pain. Instructed on POC and to call for assist PRN, will continue to monitor for changes Q1hr and PRN.
[2019-06-04] MEDS: FAMOTIDINE 20 MG TAB PO SCH (08:21)
[2019-06-04] MEDS: POTASSIUM CHL 20 Meq TABLET PO SCH (08:21)
[2019-06-04] MEDS: Ensure Enlive Strawberry 8oz Bottle PO SCH ×2 (08:22→18:11)
[2019-06-04 09:00] VITALS: BP 110/66
--- NOTE | 2019-06-04 09:44 | NUR ---
Paged case management rn Roberta Acevedo.
--- NOTE | 2019-06-04 09:46 | NUR ---
Roberta called back. Followed up regarding home health services for IV antibiotic, matos and midline care. Roberta states she will call me back.
--- NOTE | 2019-06-04 10:15 | NUR ---
Received a call from Roberta Acevedo, telephonic nurse case manager. Roberta states that patient is good to go and give the antibiotic dose for today.
[2019-06-04] MEDS: MILK OF MAGNESIA 30ML SUSP PO SCH (10:16)
--- NOTE | 2019-06-04 11:00 | NUR ---
Spoke to Denise, patient's . Informed Denise that patient is going home today after antibiotic infusion. Denise states she will be at the hospital between 6:30pm to 7pm.
[2019-06-04 12:39] VITALS: BP 111/67
[2019-06-04 13:00] VITALS: BP 111/67
--- NOTE | 2019-06-04 13:20 | NUR ---
Paged physical therapist. Patient is requesting to sit in chair.
--- NOTE | 2019-06-04 15:30 | NUR ---
PHYSICAL THERAPIST AT BEDSIDE.
--- NOTE | 2019-06-04 15:55 | NUR ---
SPOKE TO PHARMACIST. REQUESTED TO SEND THE INVANZ.
--- NOTE | 2019-06-04 16:16 | NUR ---
Pt worked on ther ex at bedside, pt was able to complete marching, heel/toe raises and knee ext. Pt worked on sit to stand x 5 and was able to ambulate x15ft using FWW zainab A. Addendum: 06/04/19 at 1630 by Laura Green PT Amended: Links added.
[2019-06-04] MEDS: ERTAPENEM SOD INJ 1 GM in SODIUM CHL 0.9% 50 ML IV SCH (16:35)
[2019-06-04 17:00] VITALS: BP 110/71
--- NOTE | 2019-06-04 18:30 | NUR ---
Discharge instructions given as ordered. Encourage to follow up with PMD as instructed. All questions and concerns addressed. Patient verbalized understanding. Medication reconciliation form completed and copy given to patient. Home medications held in Pharmacy returned to patient. instructed how to empty the matos catheter bag and return demonstration done. Report given to night RN.
--- NOTE | 2019-06-04 19:15 | NUR ---
RECEIVED REPORT FROM WOOD ROTHMAN RN. PATIENT IS FINISHING DINNER. AT BEDSIDE. AID, LUIS CARLOS WILL ASSIST PATIENT WITH CLEAN UP/DRESSING AND ASSIST WITH TRANSFERRING PATIENT ON THE WHEELCHAIR.
--- NOTE | 2019-06-04 19:50 | NUR ---
Discharge instructions given as ordered. Encourage to follow up with PMD as instructed. All questions and concerns addressed. Patient verbalized understanding. Medication reconciliation form completed and copy given to patient. Home medications held in Pharmacy returned to patient. Midline is intact and matos catheter intact. Patient is has an order to discharge home with matos catheter and midline. Instructions on how to care for matos catheter and midline given. Patient taken to vehicle via wheelchair with all personal belongings, accompanied by staff and family member. No distress noted at time of departure.
== END 2019-06-04 19:50 | disposition home health service (06) | DRG 70 ==
LOC: EDBD 22:02 → ER 22:02 → OVERFLOW 22:03 → EAST 05-28 01:48
PROVIDERS: ADMIT Nurse Practitioner; ATTEND Internal Medicine
PROC: 05HY33Z Insertion of Infusion Device into Upper Vein, Percutaneous Approach (ICD-10-PCS; principal; 2019-05-30)
DX: G93.41 Metabolic encephalopathy (principal); E43 Unspecified severe protein-calorie malnutrition; N39.0 Urinary tract infection, site not specified; J98.11 Atelectasis; G20 Parkinson's disease; F41.9 Anxiety disorder, unspecified; G62.9 Polyneuropathy, unspecified; K59.00 Constipation, unspecified; B96.20 Unspecified Escherichia coli [E. coli] as the cause of diseases classified elsewhere; Z16.12 Extended spectrum beta lactamase (ESBL) resistance; T17.920A Food in respiratory tract, part unspecified causing asphyxiation, initial encounter; Z68.23 Body mass index [BMI] 23.0-23.9, adult; Z82.49 Family history of ischemic heart disease and other diseases of the circulatory system; Z95.1 Presence of aortocoronary bypass graft; Z95.2 Presence of prosthetic heart valve; T17.928A Food in respiratory tract, part unspecified causing other injury, initial encounter; X58.XXXA Exposure to other specified factors, initial encounter; Y93.89 Activity, other specified; Y92.238 Other place in hospital as the place of occurrence of the external cause; Y99.8 Other external cause status
CPT/HCPCS: 36415; 51702; 70450; 71045; 80048; 80053; 80076; 80307; 81001; 82962; 84484; 85025; 87040; 87081; 87086; 87088; 87186; 92610; 93005; 94640; 96365; 97110; 97116; 97530; G0378; J1335; J1956

== ENCOUNTER 2019-07-04 20:58 | Emergency (ER) | payer MEDICARE, OTHER ==
[~2019-07-04] VITALS: Ht 182.9 cm; Wt 61.2 kg
[~2019-07-04 20:58] MED LIST changes: -CHOL500021 OR; -HYDR-3546 OR; +HYDR-3547 OR; -LEVO125T7 PO
[2019-07-04] MEDS ORDERED: ALBUTEROL SULF 2.5 MG/0.5ML(0.5%) NEB SOLN NEB ONE (21:30)
[2019-07-04] MEDS ORDERED: MORPHINE SULFATE 4 MG/ML SYR/VIAL IV ONE (21:30)
[2019-07-04] MEDS ORDERED: IPRATROPIUM BROM 0.5 MG/2.5ML INH SOL NEB ONE (21:30)
[2019-07-04] MEDS ORDERED: ONDANSETRON HCL 4 MG/2 ML VIAL IV ONE (21:30)
[2019-07-04 22:45] LABS: Basophils # (auto) 0.1 uL; Basophils % (auto) 0.4 % (0.0-2.0); Eosinophils # (auto) 0.5 uL; Eosinophils % (auto) 2.9 % (0.0-7.0); Hematocrit 46.6 % (41.0-53.0); Hemoglobin 15.3 g/dL (13.5-17.5); Lymphocytes # (auto) 0.8 uL; Mean Corpuscular Hemoglobin 30.1 pg (28.0-32.0); Mean Corpuscular Hgb Conc. 32.9 g/dL (32.0-36.0); Mean Corpuscular Volume 91.5 fL (80.0-100.0); Monocytes % (auto) 6.5 % (0.0-12.0); Neutrophils # (auto) 13.4 uL; Neutrophils % (auto) 85.2 % (37.0-80.0); Platelet Count (auto) 283 10^3/uL (140-450); Red Blood Cells 5.09 10^6/uL (4.5-5.90); Red Cell Distribution Width 15.3 % (11.8-14.3); White Blood Cell 15.8 10^3/uL (4.4-10.8)
[2019-07-04 22:56] LABS: Alanine Aminotransferase 7 U/L (16-61); Albumin 3.4 g/dL (3.4-5.0); Anion Gap 6 (5-15); Aspartate Aminotransferase 8 U/L (15-37); BUN/Creatinine Ratio 18.4; Blood Urea Nitrogen 19 mg/dL (7-18); Calcium 8.9 mg/dL (8.5-10.1); Carbon Dioxide 31 mmol/L (21-32); Chloride 100 mmol/L (98-107); GFR African American 92 mL/min; GFR Non-African American 76 mL/min; Glucose 107 mg/dL (74-106); Magnesium 2.5 mg/dL (1.6-2.6); Potassium 3.7 mmol/L (3.5-5.1); Sodium 137 mmol/L (136-145)
[2019-07-04 22:57] LABS: INR 1.06 (0.9-1.15); Partial Thromboplastin Time 29.7 sec (23.64-32.05)
[2019-07-04 23:01] LABS: Alkaline Phosphatase 91 U/L (45-117); Bilirubin, Total 0.5 mg/dL (0.2-1.0); Total Protein 7.4 g/dL (6.4-8.2)
[2019-07-04 23:39] LABS: Urine Bacteria FEW /hpf (None Seen); Urine Blood TRACE /uL (Negative); Urine Mucus FEW (None Seen); Urine Specific Gravity 1.027 (1.001-1.035); Urine WBC 621 /hpf (0 - 3); Urine WBC Clumps PRESENT /hpf (None Seen)
[2019-07-05 01:56] VITALS: BP 95/56
== END 2019-07-05 02:18 | disposition home or self-care (01) ==
LOC: EDBD 20:58 → ER 21:02
DX: J20.9 Acute bronchitis, unspecified (principal); N39.0 Urinary tract infection, site not specified; K44.9 Diaphragmatic hernia without obstruction or gangrene
CPT/HCPCS: 36415; 80053; 81001; 83605; 83735; 83880; 84443; 84484; 85025; 85610; 85730; 87040; 87086; 87088; 87186; 93005; 94640; 94761; 96374; 96375; 99284; J2270; J2405; J7611; J7644

== ENCOUNTER 2019-08-20 21:32 | Emergency (ER) | payer MEDICARE, OTHER ==
[~2019-08-20] VITALS: Ht 182.9 cm; Wt 71.7 kg
[2019-08-20 23:44] LABS: Urine Bacteria MANY /hpf (None Seen); Urine Blood Negative /uL (Negative); Urine Mucus MODERATE (None Seen); Urine Specific Gravity 1.026 (1.001-1.035); Urine WBC 54 /hpf (0 - 3)
[2019-08-20 23:57] LABS: Basophils # (auto) 0 uL; Basophils % (auto) 0.4 % (0.0-2.0); Eosinophils # (auto) 0 uL; Eosinophils % (auto) 0.1 % (0.0-7.0); Hematocrit 44.4 % (41.0-53.0); Hemoglobin 14.8 g/dL (13.5-17.5); Lymphocytes # (auto) 0.5 uL; Lymphocytes % (auto) 5.2 % (10.0-50.0); Mean Corpuscular Hgb Conc. 33.2 g/dL (32.0-36.0); Mean Corpuscular Volume 90.2 fL (80.0-100.0); Monocytes # (auto) 0.8 uL; Monocytes % (auto) 7.9 % (0.0-12.0); Neutrophils # (auto) 8.3 uL; Neutrophils % (auto) 86.4 % (37.0-80.0); Platelet Count (auto) 252 10^3/uL (140-450); Red Blood Cells 4.93 10^6/uL (4.5-5.90); Red Cell Distribution Width 15.4 % (11.8-14.3); White Blood Cell 9.7 10^3/uL (4.4-10.8)
[2019-08-21 00:15] LABS: Albumin 2.9 g/dL (3.4-5.0); Anion Gap 8 (5-15); Blood Urea Nitrogen 23 mg/dL (7-18); Calcium 8.8 mg/dL (8.5-10.1); Carbon Dioxide 32 mmol/L (21-32); Chloride 98 mmol/L (98-107); Glucose 96 mg/dL (74-106); Potassium 3.1 mmol/L (3.5-5.1); Sodium 138 mmol/L (136-145)
[2019-08-21 00:17] LABS: BUN/Creatinine Ratio 22.5; GFR African American 93 mL/min; GFR Non-African American 77 mL/min
[2019-08-21 00:33] LABS: Alanine Aminotransferase 21 U/L (16-61); Alkaline Phosphatase 81 U/L (45-117); Aspartate Aminotransferase 27 U/L (15-37); Bilirubin, Total 0.5 mg/dL (0.2-1.0); Total Protein 6.9 g/dL (6.4-8.2)
[2019-08-21] MEDS ORDERED: metroNIDAZOLE 500MG/100ML 100 ML IV ONE (01:30)
[2019-08-21 03:00] VITALS: BP 137/85
== END 2019-08-21 05:02 | disposition home or self-care (01) ==
LOC: EDBD 21:32 → ER 21:38
DX: R51 Headache (principal); N39.0 Urinary tract infection, site not specified; I25.810 Atherosclerosis of coronary artery bypass graft(s) without angina pectoris; I25.2 Old myocardial infarction; E07.9 Disorder of thyroid, unspecified; F17.210 Nicotine dependence, cigarettes, uncomplicated; Z79.899 Other long term (current) drug therapy; Z95.1 Presence of aortocoronary bypass graft; Z98.61 Coronary angioplasty status; W19.XXXA Unspecified fall, initial encounter; Y93.01 Activity, walking, marching and hiking; Y99.8 Other external cause status; Y92.89 Other specified places as the place of occurrence of the external cause
CPT/HCPCS: 36415; 71045; 80053; 81001; 83605; 84484; 85025; 87040; 87086; 87088; 87186; 93005; 94761; 96365; 99284; J3490; 51702